=== PATIENT | male | born 1985 | race Caucasian/White ===

== ENCOUNTER → 2017-01-11 | Outpatient (CLI) | payer BC ==
[2017-01-11 17:05] VITALS: BP 135/93
--- NOTE | 2017-01-11 17:05 | Urgent Care T Sheet Gen (E) ---
Intake General Temperature (Fahrenheit): 98.6 Pulse: 97 Blood Pressure Systolic: 135 Blood Pressure Diastolic: 93 Respirations: 18 SPO2: 97 Description of Symptoms Patient presents complaining of anxiety and stress. Patient states over the past few months, his stress level has increased. 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 On occasion, during times of high stress, Reggie has noticed a deep pain below the sternum. No sweating, headache, blurred vision or shortness of breath. He feels the temporary pain and can feel his heart beating faster but after a few minutes, and once the stressor is removed, he feels normal. These symptoms don't happen daily. Denies any history of GERD. Patient has had mild depression in the past which he controlled with activity modifiers. Outside of work, patient is also noticing more stress in his home life. He commutes which keeps him from home more than he'd like. He and his are also trying to conceive, which has been stressful. Patient states all these things have been piling on lately and he is struggling to keep up. Patient also admits his lifestyle isn't the healthiest in that he eats a lot of greasy foods and drinks a lot of energy drinks and caffeinated drinks. Never feels any heart palpitations though. Patient denies any cardiac family history however states his dad has diabetes. Patient's most recent chest discomfort episode occurred this afternoon which is what prompted him to come and be seen. Lasted approx 20 minutes and resolved by removing himself from the stressful event. Respiratory Constitutional Symptoms: No syptoms reported EENTM: No symptoms reported Respiratory: No symptoms reported Cardiovascular: Chest painNo Edema, No Palpitations, No Syncope Gastrointestinal/Abdominal: No symptoms reported Genitourinary: No symptoms reported Neurological: Anxiety Depressed Emotional problems All Other Systems Reviewed Remaining Systems: All other systems reviewed with negative findings Physical Exam Physical Exam General Appearance: WD/WN No apparent distress Eyes, Ears, Nose, Throat Ex: PERRL/EOMI TMs normal Pharynx normal Neck Exam: SuppleNo Lymphadenopathy Respiratory Exam: Lungs clear Normal breath sounds Cardiovascular Exam: Regular rate, rhythm No murmur GI/ Exam: Non tender No organomegaly Normal bowel sounds Neurologic/Psychiatric Exam: Oriented times 4 CN's II-X nml No motor deficits No sensory deficits Comment After sitting in the room and talking, I rechecked the patient's BP. It went from 135/93 to 128/84. The patient didn't necessarily have a flat affect or anxious demeanor, however the symptoms he described sound very much like anxiety. Departure Urgent Care Impression Impression: Primary Impression: Anxiety Departure Disposition: 01 HOME OR SELF-CARE Condition: Stable Additional Instructions: Long discussion with patient regarding home life, work life, symptoms, triggers , etc. He denies any history of GERD and his chest discomfort sounds more anxiety rather than acid reflux. The symptoms are intermittent and are always triggered by a stressful event. Today, it was regarding 3 players being disciplined. The patient states he has dealt with mild depression in the past however didn't need medication to treat. Long discussion regarding starting a daily maintenance med or just treating episodes with Xanax or both. Patient states that they both sound worthwhile and would like to take Lexapro daily and use Xanax as needed. Explained that while Lexapro is commonly used for depression, it can also be beneficial for anxiety. I also don't believe his chest discomfort is due to a cardiac abnormality as the symptoms have been present for months and have been worsening with time. If this were something detrimental, it would have had catastrophic results by now. I have started him on Lexapro 5mg daily x 7 days then I have bumped him up to Lexapro 10mg daily. I have given him 1 month supply with 2 refills. This should allow the patient time to establish with a new PCP as he just moved back to the area. I gave him Dr Eaton's number. I have also prescribed Xanax 0.25mg TID prn anxiety. Explained that this is only for emergencies such as when he knows he will have a difficult conversation with a player (which is a known trigger for his symptoms). Told him it may make him drowsy so be aware. Patient asked about a medication he can take during a match to lower his BP as he knows it is elevated. Told him that there are short acting meds but that I don't feel comfortable prescribing those. PCP is more appropriate cande since his BP normalizes with rest. We also discussed general lab workup. Patient states his lifestyle is worrying him cande with his overall health picture. I ordered lab which he can stop by any morning to have done. Told him it is fasting. Lab includes CBC, CMP, TSH, HA1c, lipid panel. Will call once results are known. Patient understands DC instructions. All questions were answered. 45+ minutes was spent with the patient evaluating him, discussing history and workup, order and interpreting lab. End of report . PARIS BURGESS January 11, 2017 17:05
--- NOTE | 2017-01-13 13:39 | Urgent Care Follow Up Note (E) ---
Urgent Care Follow Up Note Lab results were normal including CBC, CMP, TSH, lipid panel and A1c. Results were discussed with Vilma Ernst as I was out of the office yesterday. Per Vilma's note, lab results were discussed with patient by phone. Patient then stopped by the office later to discuss and all questions were answered. Continue meds as prescribed Return as needed. PARIS BURGESS January 13, 2017 13:39
== END ==
LOC: MHUC 16:00
PROVIDERS: ATTEND Physician Assistant
DX: F41.8 Other specified anxiety disorders (principal)
CPT/HCPCS: 99214

== ENCOUNTER → 2017-01-12 | Outpatient (CLI) | payer BC ==
[2017-01-12 09:58] LABS: BASOPHILS % (AUTO) 0 % (0-2); EOSINOPHILS # (AUTO) 0.1 10^3uL; EOSINOPHILS % (AUTO) 2 % (0-4); LYMPHOCYTES # (AUTO) 0.8 X10^3; MEAN CORPUSCULAR HEMOGLOBIN 29.9 PG (26.0-34.0); MEAN CORPUSCULAR VOLUME 84 FL (80-100); MEAN PLATELET VOLUME 10.1 FL (6.0-9.5); MONOCYTES # (AUTO) 0.5 X10^3; MONOCYTES % (AUTO) 10 % (3-11); NEUTROPHILS # (AUTO) 3.4 X10^3; NEUTROPHILS % (AUTO) 71 % (51-67); PLATELET COUNT 161 10^3uL (150-450); WHITE BLOOD COUNT 4.76 10^3uL (4.0-11.0)
[2017-01-12 09:59] LABS: MEAN CORPUSCULAR HGB CONC 35.8 g/dL (31.0-37.0)
[2017-01-12 11:09] LABS: ALBUMIN 4.6 g/dL (3.4-5.0); ANION GAP 15.8 MEQ/L (3-15); CALCULATED IONIZED CALCIUM 4.3 mg/dL (3.8-4.6); TOTAL PROTEIN 7.3 g/dL (6.4-8.5)
== END ==
LOC: LAB 09:47
PROVIDERS: ATTEND Physician Assistant
DX: R53.83 Other fatigue (principal)
CPT/HCPCS: 36415; 80053; 80061; 83036; 84443; 85025